=== PATIENT | female | born 1970 | race Caucasian/White ===

== ENCOUNTER 2017-02-27 09:41 | Inpatient (IN) | payer BC, OTHER ==
[~2017-02-27] VITALS: Ht 152.4 cm; Wt 49.0 kg
[2017-02-27] MEDS ORDERED: MAGNESIUM HYDROXIDE 30 ML LIQUID UDC PO PRN (18:30)
[2017-02-27] MEDS ORDERED: MAG HYDROX/AL HYDROX/SIMETH 30 ML LIQUID UDC PO PRN (18:30)
[2017-02-27] MEDS ORDERED: diphenhydrAMINE 50 MG CAPSULE PO PRN (18:30)
[2017-02-27] MEDS ORDERED: BUPRENORPHINE HCL 2 MG TAB.SUBL SL PRN (18:30)
[2017-02-27] MEDS ORDERED: ONDANSETRON 4 MG/2 ML VIAL IM PRN (18:30)
[2017-02-27] MEDS ORDERED: MIRALAX 17 GM POWD.PACK PO PRN (18:30)
[2017-02-27] MEDS ORDERED: LOPERAMIDE HCL 2 MG CAPSULE PO PRN ×2 (18:30)
[2017-02-27] MEDS ORDERED: DICYCLOMINE HCL 20 MG TABLET PO PRN (18:30)
--- NOTE | 2017-02-27 19:15 | NUR ---
ADMISSION NOTE: Patient is a 46 y.o female admitted at [facility] at approximately 1915 pm of 02/27/17 for medically supervised withdrawal from Opiates and Benzo. Body search done and skin check performed in Room 301, no contraband found. Skin noted to be intact. Pt is 50 tall and weighs 108 lbs in a standing scale. Pt is cooperative during assessment. Patient is oriented to floor unit and room. Patient follows a regular diet at home with no known food and drug allergies. Pt wishes to be full Code. Patient is alert & oriented x4, ambulatory with a steady gait. Speech is clear and audible. Pt is cooperative during interview. No shortness of breath noted. Respiration even & unlabored. Abdomen soft & non-distended. Bowel sounds active in all four quadrants. Pt complains of nausea & stomach cramps. No episode of vomiting noted. Patient complains of 8/10 body aches & mild headache. Bilateral hand tremors noted. Pt complains of runny nose, sweating & chills. Vitals upon admission: B/P 136/86, TX 89, Temp 98.2, RR 16, O2Sat 98%. Patient noted with past medical history of Anxiety, Depression, Hypertension, & history of seizure d/t benzo withdrawal. Pt denies thoughts of suicide. Pt currently denies SI/HI. Pt was able to provide urine sample for drug screen and is voiding clear yellow urine with no problems. Substance use: 1. Roxycodone- Pt uses 240-270mg PO daily for 7 months. Last use was 60mg on the day of admission 02/27/17. Pt has been using since 23 years old. 2. Xanax PO- Pt uses as prescribed. Pt uses 2mg TID (6mg/daily) for 20 years. Last use was 6mg the day prior to 02/26/17. Pt has been to [facility] in [place] 2 years ago for detox for 9 days. 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 Patient denies being hospitalized in the last 30 days. Patient reports symptoms when he does not use as body aches, tremors, hot & cold sweats, insomnia, loss of appetite, nausea/vomiting & diarrhea. Patient smokes 20 cigarettes daily. Patient refused pneumonia vaccine, educated patient risk & benefits but still refused. Patient has PCP Dr. Mahogany Landa. Urine drug screen came back positive for Opiates & Benzodiazepines. Fall & Seizure precautions are in place. All needs attended & met. Safety precautions are in place. Bed locked in lowest position. Both side rails padded & up. Call light within pt's reach. Will continue to monitor. Dr. Spencer seen pt. Awaiting for admission order. Will continue to monitor patient.
[2017-02-27 19:35] VITALS: BP 136/86
[2017-02-27 20:54] LABS: *URINE HCG, QUAL NEGATIVE (NEGATIVE)
[2017-02-27 21:15] LABS: *AMPHETAMINE, URINE NEGATIVE (NEGATIVE); *BARBITURATE, URINE NEGATIVE (NEGATIVE); *CANNABINOID, URINE NEGATIVE (NEGATIVE); *COCCAINE, URINE NEGATIVE (NEGATIVE); *OPIATE, URINE POSITIVE (NEGATIVE); *PHENCYCLIDINE SCREEN,URINE NEGATIVE (NEGATIVE)
[2017-02-27 21:31] LABS: BASOPHILS # (AUTO) 0.1 K/uL (0.0-0.2); BASOPHILS % (AUTO) 0.6 % (0.0-2.0); EOSINOPHILS # (AUTO) 0.7 K/uL (0.0-0.7); EOSINOPHILS % (AUTO) 5.6 % (0.0-7.0); HEMATOCRIT 44.4 % (37.0-47.0); HEMOGLOBIN 15.4 g/dL (12.0-16.0); LYMPHOCYTES # (AUTO) 3.8 K/uL (0.8-4.8); LYMPHOCYTES % (AUTO) 28.8 % (20.5-51.5); MEAN CORPUSCULAR HEMOGLOBIN 31.4 uug (27.0-31.0); MEAN CORPUSCULAR HGB CONC 35 g/dL (32.0-37.0); MEAN CORPUSCULAR VOLUME 90.7 fL (81.0-99.0); MONOCYTES # (AUTO) 0.6 K/uL (0.1-1.30); MONOCYTES % (AUTO) 4.5 % (0.0-11.0); NEUTROPHILS # (AUTO) 8.1 K/uL (1.8-8.9); NEUTROPHILS % (AUTO) 60.5 % (38.5-71.5); PLATELET COUNT (AUTO) 365 K/uL (150-450); WHITE BLOOD COUNT (AUTO) 13.3 K/uL (4.0-11.2)
[2017-02-27 21:50] LABS: ALANINE AMINOTRANSFERASE 40 U/L (14-59); ALKALINE PHOSPHATASE 59 U/L (50-136); ASPARTATE AMINOTRANSFERASE 25 U/L (15-37); BILIRUBIN,TOTAL 0.4 mg/dL (0.2-1.0); CARBON DIOXIDE 28 mmol/L (21-32); CHLORIDE 98 mmol/L (98-107); CREATININE 0.7 mg/dL (0.6-1.3); GFR 90 mL/min (>60); GLUCOSE 133 mg/dL (74-106); MAGNESIUM 2.1 mg/dL (1.8-2.4); SODIUM SERUM 138 mmol/L (136-145); TOTAL PROTEIN, SERUM 7.9 g/dL (6.4-8.2); UREA NITROGEN, BLOOD 13 mg/dL (7-18)
[2017-02-27 21:52] LABS: POTASSIUM 2.7 mmol/L (3.5-5.1)
[2017-02-27 21:58] LABS: ETHANOL < 3 MG/DL (0-0)
[2017-02-27] MEDS ORDERED: DIAZEPAM 10 MG TABLET PO ONE (22:00)
[2017-02-27 22:09] LABS: HIV-1 p24 ANTIGEN NON REACTIVE (NONREACTIVE); HIV-1/2 ANTIBODY NON REACTIVE (NONREACTIVE)
[2017-02-27] MEDS ORDERED: POTASSIUM CHLORIDE 20 MEQ TAB.PRT.SR PO ONE ×3 (22:15→23:00)
[2017-02-27 22:16] LABS: THYROID STIMULATING HORMONE 1.329 mIU/mL (0.358-3.740)
[2017-02-27] MEDS: IBUPROFEN 600 MG TABLET PO PRN (22:35)
[2017-02-27] MEDS: CLONIDINE HCL 0.1 MG TABLET PO PRN (22:35)
--- NOTE | 2017-02-27 22:35 | NUR ---
PRN Motrin & Zofran. Patient complains of 8/10 body aches and nausea. No episode of vomiting noted. Pt appears restless. PRN Motrin & Zofran given as ordered. Will reassess in 1 hour. Will continue to monitor patient. Addendum: 02/28/17 at 0501 by TIFFANY BETANCOURT RN PRN Clonidine also given for c/o sweating, chills & anxiety. B/P 156/91, CO 89, RR 16, O2Sat 99% noted. Will continue to monitor.
--- NOTE | 2017-02-27 22:35 | NUR ---
New orders Dr. Spencer placed an order for K-dur 40mEQ for potassium levels of 2.7 and Valium 10mg PO. Pt noted with COWS 10 CIWA 8 as evidenced by c/o body aches, anxiety, visible tremors, sweating, chills, mild headache, & nausea. Vitals signs stable. B/P 156/91, TN 89, RR 16, O2Sat 99%. Will reassess in 1 hour for effectiveness of medication.
[2017-02-27] MEDS: ONDANSETRON ODT 4 MG TAB.RAPDIS SL PRN (22:36)
[2017-02-27] MEDS ORDERED: POTASSIUM CHLORIDE 20 MEQ TAB.PRT.SR ONE (22:41)
--- NOTE | 2017-02-27 23:35 | NUR ---
PRN Reassessment Patient verbalized relief from pain & improved nausea. No episode of vomiting noted. Patient lying in bed and appears calm and comfortable. Vitals rechecked. B/P 96/65 LA 82 noted. COWS 6 CIWA 4. Will continue to monitor patient.
[2017-02-28] VITALS (7 sets, daily range): BP systolic 96–128; BP diastolic 65–83
[2017-02-28] MEDS ORDERED: POTASSIUM CHLORIDE 20 MEQ TAB.PRT.SR ONE (00:18)
--- NOTE | 2017-02-28 00:18 | NUR ---
new order Dr. Spencer placed an order for K-dur 40mEQ for potassium levels of 2.7. ok to give at this time. Kdur 40 Meq administered as ordered. Will continue to monitor.
[2017-02-28] MEDS: HYDROXYZINE PAMOATE 25 MG CAPSULE PO PRN ×3 (00:35→23:35)
--- NOTE | 2017-02-28 00:36 | NUR ---
PRN vistaril & Benadryl Pateint c/o of anxiety & insomnia. PRN Vistaril & Benadryl given as ordered. Will continue to monitor.
--- NOTE | 2017-02-28 01:36 | NUR ---
PRN Reassessment Patient asleep in bed and appears comfortable. No shortness of breath noted. Respiration even & unlabored. Safety precautions are in place. Will continue to monitor patient.
[2017-02-28] MEDS ORDERED: ESCI10TA PO (02:38)
[2017-02-28] MEDS ORDERED: AMLO10TA2 PO (02:38)
[2017-02-28] MEDS ORDERED: METO100T3 PO (02:38)
[2017-02-28] MEDS ORDERED: ALPR2TAB2 PO (02:38)
[2017-02-28] MEDS: IBUPROFEN 600 MG TABLET PO PRN (05:18)
--- NOTE | 2017-02-28 07:39 | NUR ---
END OF SHIFT NOTE: Patient is a 46 y/o female admitted last night 02/27/17 at 1915pm for Opiate and Benzo dependence. Patient reported using Roxycodone 240-270mg daily for 7 months & Xanax 6mg daily. Patient with past medical history of Anxiety, Depression, Hypertension & history of Seizure d/t benzo withdrawal. Seizure and Fall precautions. Patient is on a regular diet with no known food and drug allergies. Full Code status. Patient was placed on a 5-day Valium and 5-day Subutex taper to be started @ 0900. Initial COWS is 10 CIWA 8 noted. Pt was given PRN Motrin, Zofran & Clonidine for withdrawals and were effective. MD ordered a one time dose of Valium 10mg and was effective. Blood result came back and with a potassium level of 2.7 noted. Patient was given K-dur 40mEq twice at 2235 & 0031 as ordered. Pt reported that medication is effective in controlling withdrawals as evident by a decreased in COWS from 10 to 6 & CIWA from 8 to 4. Pt was having trouble sleeping and c/o anxiety. PRN Vistaril & Benadryl given as ordered. Pt remained stable and vitals remains WNL. Pt slept for a total of 5 hours. Pt consumed 850 ml of fluids. Voided 1x with no bowel movement. All needs attended & met. Safety precautions are in place. Will endorse pt to day shift nurse.
--- NOTE | 2017-02-28 08:00 | NUR ---
START OF SHIFT Pt 46 y/o female admitted for opioid and benzo dependence. Pt received in room awake laying on bed. Pt alert and oriented to name, place, and time. Perrla. Skin warm and slightly moist to touch. Respirations even and unlabored. Bilateral hand tremors noted. Pt with c/o runny nose, body aches 6/10, and stated she is experience sweats. Bed on lowest position with side rails x2up for safety. Call light within reach. No distress noted at this time.
[2017-02-28 08:07] LABS: BASOPHILS % (AUTO) 0.5 % (0.0-2.0); EOSINOPHILS # (AUTO) 0.4 K/uL (0.0-0.7); EOSINOPHILS % (AUTO) 4.8 % (0.0-7.0); HEMATOCRIT 44.9 % (37.0-47.0); HEMOGLOBIN 15.3 g/dL (12.0-16.0); LYMPHOCYTES # (AUTO) 2.1 K/uL (0.8-4.8); LYMPHOCYTES % (AUTO) 25.8 % (20.5-51.5); MEAN CORPUSCULAR HEMOGLOBIN 30.6 uug (27.0-31.0); MEAN CORPUSCULAR HGB CONC 34 g/dL (32.0-37.0); MEAN CORPUSCULAR VOLUME 89.8 fL (81.0-99.0); MONOCYTES # (AUTO) 0.3 K/uL (0.1-1.30); MONOCYTES % (AUTO) 3.6 % (0.0-11.0); NEUTROPHILS # (AUTO) 5.2 K/uL (1.8-8.9); NEUTROPHILS % (AUTO) 65.3 % (38.5-71.5); PLATELET COUNT (AUTO) 339 K/uL (150-450); RED CELL DISTRIBUTION WIDTH 13.3 % (11.5-14.5)
[2017-02-28 08:18] LABS: CALCIUM 9.2 mg/dL (8.5-10.1); CREATININE 0.7 mg/dL (0.6-1.3); MAGNESIUM 2.2 mg/dL (1.8-2.4); PHOSPHOROUS 2.3 mg/dL (2.5-4.9); POTASSIUM 4.2 mmol/L (3.5-5.1)
[2017-02-28] MEDS ORDERED: TUBERCULIN,PURIF.PROT.DERIV. 5 TU/0.1 ML TEST ID ONE (09:00)
[2017-02-28] MEDS: DIAZEPAM 10 MG TABLET PO SCH ×3 (09:17→21:34)
[2017-02-28] MEDS: AMLODIPINE 10 MG TABLET PO SCH (09:17)
[2017-02-28] MEDS: MULTIVITAMINS,THERAPEUTIC TABLET PO SCH (09:17)
[2017-02-28] MEDS: METHOCARBAMOL 750 MG TABLET PO PRN (09:17)
--- NOTE | 2017-02-28 09:17 | NUR ---
PRN Pt with c/o body aches 05/04. robaxin po prn per MD order given and tolerated well.
[2017-02-28] MEDS: BUPRENORPHINE HCL 2 MG TAB.SUBL SL SCH ×4 (09:18→21:34)
[2017-02-28] MEDS ORDERED: NEUTRA PHOS PACKET PO ONE (10:00)
--- NOTE | 2017-02-28 10:17 | NUR ---
PRN EVAL Pt observed in bed with eyes closed resting, but easily arousable to name. No distress noted this time.
[2017-02-28] MEDS ORDERED: diphenhydrAMINE 25 MG CAP PO PRN (15:45)
--- NOTE | 2017-02-28 18:31 | NUR ---
END OF SHIFT Pt 46 y/o female admitted for opioid and benzo dependence. Pt alert and oriented to name, place, and time. Perrla. Skin warm and slightly moist to touch. Respirations even and unlabored. Bilateral hand tremors noted. Pt with episodes of chills and sweats throughout the day. Pt with tearful episode this afternoon after speaking with family. Pt medication compliant and tolerated well. No ASE noted. Pt selective wtih group activity today. Bed on lowest position with side rails x2up for safety. Call light within reach. No distress noted at this time.
--- NOTE | 2017-02-28 19:00 | NUR ---
START OF SHIFT NOTE: Patient is a 46 y/o female admitted last night 02/27/17 at 1915pm for Opiate and Benzo dependence. Patient reported using Roxycodone 240-270mg daily for 7 months & Xanax 6mg daily. Patient with past medical history of Anxiety, Depression, Hypertension & history of Seizure d/t benzo withdrawal. Seizure and Fall precautions. Patient is on a regular diet with no known food and drug allergies. Full Code status. Patient was started on a 5-day Subutex and 5-day Valium taper and tolerating well. Last COWS is 10. Pt was given Vistaril & Robaxin and was effective. Patient is alert & oriented x4. No shortness of breath noted. Respiration even & unlabored. Abdomen soft & non-distended. Bowel sounds active in all four quadrants. No nausea/vomiting noted. No complaints of pain/discomfort. Patient denies any anxiety. Bilateral hand tremors noted. No hallucinations. Patient denies SI/HI. Safety precautions are in place. Bed locked in lowest position. Both side rails up. Call light within pts reach. Will continue to monitor.
[2017-02-28] MEDS: TRAZODONE 50 MG TABLET PO PRN (21:35)
--- NOTE | 2017-02-28 21:35 | NUR ---
PRN Trazodone Patient c/o insomnia. Patient lying in bed and appears calm. No c/o pain noted. PRN Trazodone given as ordered. Will reassess in 1 hour for effectiveness of medication.
[2017-02-28] MEDS ORDERED: TRAZODONE 50 MG TABLET ONE (21:37)
[2017-02-28] MEDS ORDERED: albuterol NEB (21:46)
--- NOTE | 2017-02-28 21:51 | NUR ---
RN note: New information regarding pt noted. Patient stated that she has COPD and has been receiving Albuterol nebulizer PRN at home for shortness of breath. Dr. Spencer notified that pt c/o SOB. Dr. Spencer with new order for ALbuterol Q4H PRN via nebulizer. Addendum: 03/01/17 at 0120 by TIFFANY BETANCOURT RN RT notified to administer treatment. Will continue to monitor patient.
[2017-02-28] MEDS: ALBUTEROL SULFATE 1.25 MG/3 ML NEBU NEB PRN (22:28)
[2017-02-28] MEDS ORDERED: ALBUTEROL SULFATE 1.25 MG/3 ML NEBU ONE (22:28)
--- NOTE | 2017-02-28 22:28 | NUR ---
Called by e learning specialist to administer PRN resp neb tx at this time. Tx adm'd and tolerated well.
--- NOTE | 2017-02-28 22:35 | NUR ---
PRN Reassessment Patient still awake at this time. PRN medication not effective at this time. Non-pharmacological intervention and relaxation techniques provided. Will continue to monitor patient.
--- NOTE | 2017-02-28 23:00 | NUR ---
PRN Reassessment Patient verbalized that Albuterol treatment helped. PRN medication effective. Pt denies any shortness of breath at this time. Patient lying in bed and appears comfortable. Will continue to monitor patient.
--- NOTE | 2017-02-28 23:35 | NUR ---
PRN Vistaril Patient c/o anxiety. Pt lying in bed and appear anxious and restless. PRN Vistaril given as ordered. Will conitnue to monitor for effectiveness of medication.
[2017-03-01] VITALS: BP 98/63
[2017-03-01] MEDS: IBUPROFEN 600 MG TABLET PO PRN ×2 (01:53→13:32)
--- NOTE | 2017-03-01 01:53 | NUR ---
PRN Motrin Patient woke up with 6/10 headache. Pt noted with facial grimacing. PRN Motrin given as ordered. Will continue to monitor.
--- NOTE | 2017-03-01 02:53 | NUR ---
PRN Reassessment Patient asleep at this time and unable to reassess for effectiveness of medication given. Patient lying in bed and appears comfortable in bed. No shortness of breath noted. Will continue to monitor.
[2017-03-01 04:00] VITALS: BP 93/60
--- NOTE | 2017-03-01 07:17 | NUR ---
END OF SHIFT NOTE: Patient is a 46 y/o female admitted 02/27/17 for Opiate and Benzo dependence. Patient reported using Roxycodone 240-270mg daily for 7 months & Xanax 6mg daily. Patient with past medical history of Anxiety, Depression, Hypertension & history of Seizure d/t benzo withdrawal. Seizure and Fall precautions. Patient is on a regular diet with no known food and drug allergies. Full Code status. Patient is on on a 5-day Valium and 5-day Subutex taper and tolerating well. Last COWS is 5 CIWA 5 noted. Pt was given PRN Motrin, Vistaril & Trazodone during my shift. Pt c/o of shortness of breath and disclosed that she has COPD and that she takes Albuterol PRN via nebulizer for SOB at home. Dr. Spencer notified and with new orders noted. Pt received 1 breathing treatment last night and was effective. Pt remained stable and vitals remains WNL. Pt slept for a total of 5 hours. Pt consumed 800 ml of fluids. Voided 3x with no bowel movement. All needs attended & met. Safety precautions are in place. Will endorse to day shift nurse.
[2017-03-01 08:00] VITALS: BP 126/85
--- NOTE | 2017-03-01 08:00 | NUR ---
START OF SHIFT Pt 46 y/o female admitted for opioid and benzo dependence. Pt received in room awake laying on bed. Pt alert and oriented to name, place, and time. Perrla. Skin warm and slightly moist to touch. Respirations even and unlabored. Bilateral hand tremors noted. Pt with c/o stuffy nose, body aches 5/10, and stated she is experience sweats and chills throughout the night. It was reported that pt slept for 5 hours of sleep last night. Bed on lowest position with side rails x2up for safety. Call light within reach. No distress noted at this time.
[2017-03-01] MEDS: ALBUTEROL SULFATE 1.25 MG/3 ML NEBU NEB PRN ×2 (08:10→20:30)
--- NOTE | 2017-03-01 08:10 | NUR ---
PRN Pt with c/o SOB. Albuterol treatment prn per MD order administered by RT and tolerated well.
[2017-03-01] MEDS: BUPRENORPHINE HCL 2 MG TAB.SUBL SL SCH ×3 (08:30→21:26)
[2017-03-01] MEDS: MULTIVITAMINS,THERAPEUTIC TABLET PO SCH (08:30)
[2017-03-01] MEDS: DIAZEPAM 5 MG TABLET PO SCH ×4 (08:30→21:25)
[2017-03-01] MEDS: AMLODIPINE 10 MG TABLET PO SCH (08:32)
[2017-03-01] MEDS: METHOCARBAMOL 750 MG TABLET PO PRN (08:32)
[2017-03-01] MEDS: LORATADINE 10 MG TABLET PO SCH (08:32)
--- NOTE | 2017-03-01 08:32 | NUR ---
PRN Pt with c/o generalized body aches 03/04. robaxin po prn per MD order given and tolerated well.
[2017-03-01] MEDS: FLUTICASONE PROP NASAL SPRAY 16 GM BOTTLE NS SCH (08:33)
[2017-03-01 08:36] LABS: CALCIUM 8.6 mg/dL (8.5-10.1); CREATININE 0.6 mg/dL (0.6-1.3); MAGNESIUM 2.3 mg/dL (1.8-2.4); POTASSIUM 4.7 mmol/L (3.5-5.1)
--- NOTE | 2017-03-01 09:32 | NUR ---
PRN EVAL Pt observed in bed watching television and states pain level 1/10.
[2017-03-01 12:00] VITALS: BP 10/76
[2017-03-01 12:08] LABS: HCV AB 0.1 s/co ratio (0.0-0.9); HEPATITIS B CORE AB, IgM Negative (Negative); HEPATITIS B SURFACE AG Negative (Negative)
[2017-03-01] MEDS ORDERED: METHYL SALICYLATE/MENTHOL CREAM 28 GM TUBE TOP PRN (12:45)
--- NOTE | 2017-03-01 13:32 | NUR ---
PRN Pt with c/o headache 04/03. Motrin po prn per MD order given and tolerated well.
--- NOTE | 2017-03-01 14:31 | NUR ---
PRN EVAL Pt observed on bed in room watching television. No distress noted. Pt stated headache 12/04.
[2017-03-01] MEDS: GABAPENTIN 300 MG CAPSULE PO SCH ×2 (15:11→21:26)
[2017-03-01 16:00] VITALS: BP 102/68
--- NOTE | 2017-03-01 17:02 | NUR ---
PRN Pt with c/o bilateral leg cramping. Tim topical prn per MD order given.
--- NOTE | 2017-03-01 18:02 | NUR ---
ALEXANDRIA FELDER Pt observed in room laying on bed awake. Pt states she feels the medication for BLE is effective. No distress noted at this time.
--- NOTE | 2017-03-01 18:36 | NUR ---
END OF SHIFT Pt 46 y/o female admitted for opioid and benzo dependence. Pt alert and oriented to name, place, and time. Perrla. Skin warm and slightly moist to touch. Respirations even and unlabored. Bilateral hand tremors noted. Pt stated had episodes of chills throughout the day. Pt medication compliant and tolerated well. No ASE noted. Pt attended group activity today. Bed on lowest position with side rails x2 up for safety. Call light within reach. No distress noted at this time.
--- NOTE | 2017-03-01 19:30 | NUR ---
START OF SHIFT NOTE: Patient is a 46 y/o female admitted 02/27/17 for Opiate and Benzo dependence. Patient reported using Roxycodone 240-270mg daily for 7 months & Xanax 6mg daily. Patient with past medical history of Anxiety, Depression, Hypertension, COPD & history of Seizure d/t benzo withdrawal. Seizure and Fall precautions. Patient is on a regular diet with no known food and drug allergies. Full Code status. Patient was started on a 5-day Subutex and 5-day Valium taper and tolerating well. Last COWS is 6 CIWA 3. Pt was given PRN Bengay for leg pain and was effective. Patient is alert & oriented x4. No shortness of breath noted. Respiration even & unlabored. Abdomen soft & non-distended. Bowel sounds active in all four quadrants. Pt complains of nausea/vomiting noted. Pt c/o of 6/10 body aches, anxiety & mild headache. Bilateral hand tremors noted. No hallucinations. Patient denies SI/HI. Safety precautions are in place. Bed locked in lowest position. Both side rails up. Call light within pts reach. Will continue to monitor.
[2017-03-01 20:00] VITALS: BP 106/70
--- NOTE | 2017-03-01 20:30 | NUR ---
Breathing treatment given. Treatment tolerated well. No adverse reactions noted.
[2017-03-01] MEDS: PRAZOSIN HCL 1 MG CAPSULE PO SCH (21:24)
[2017-03-01] MEDS: ONDANSETRON ODT 4 MG TAB.RAPDIS SL PRN (21:25)
[2017-03-01] MEDS: TRAZODONE 50 MG TABLET PO PRN (21:25)
--- NOTE | 2017-03-01 21:25 | NUR ---
PRN Trazodone Patient complains of insomnia. PRN Trazodone given as ordered. Will continue to monitor.
--- NOTE | 2017-03-01 22:25 | NUR ---
PRN reassessment Pt still awake. PRN medication not effective at this time. Will continue to monitor patient.
[2017-03-01] MEDS: HYDROXYZINE PAMOATE 25 MG CAPSULE PO PRN (22:54)
--- NOTE | 2017-03-01 22:54 | NUR ---
PRN Vistaril Patient complained of anxiety. Patient is restless and appears anxious. PRN Vistaril given as ordered. Will continue to monitor.
[2017-03-01] MEDS ORDERED: HYDROXYZINE PAMOATE 25 MG CAPSULE ONE (23:02)
--- NOTE | 2017-03-01 23:54 | NUR ---
PRN Reassessment Patient asleep and appears comfortable. No shortness of breath noted. Respiration even & unlabored. Will continue to monitor patient.
[2017-03-02] VITALS: BP 96/58
[2017-03-02] MEDS: ACETAMINOPHEN 325 MG TABLET PO PRN ×2 (02:34→13:25)
[2017-03-02] MEDS: ALBUTEROL SULFATE 1.25 MG/3 ML NEBU NEB PRN (02:41)
--- NOTE | 2017-03-02 07:45 | NUR ---
END OF SHIFT NOTE: Patient is a 46 y/o female admitted 02/27/17 for Opiate and Benzo dependence. Patient reported using Roxycodone 240-270mg daily for 7 months & Xanax 6mg daily. Patient with past medical history of Anxiety, Depression, Hypertension, COPD & history of Seizure d/t benzo withdrawal. Seizure and Fall precautions. Patient is on a regular diet with no known food and drug allergies. Full Code status. Patient was started on a 5-day Subutex and 5-day Valium taper and tolerating well. Last COWS is 6 CIWA 5. Pt was given PRN Trazodone for sleep, Tylenol for headache, Vistaril for Anxiety, Zofran for nausea & was given PRN Albuterol for SoB by RT and was effective. Pt remained stable and vitals remains WNL. Pt slept for a total of 5 hours. Pt consumed 795ml of fluids. Voided 2x with no bowel movement. All needs attended & met. Safety precautioons are in palce Will continue to monitor.
[2017-03-02 08:00] VITALS: BP 121/80
--- NOTE | 2017-03-02 08:00 | NUR ---
START OF SHIFT Pt 46 y/o female admitted for opioid and benzo dependence. Pt received in room awake laying on bed watching television. Pt alert and oriented to name, place, and time. Perrla. Skin warm and slightly moist to touch. Respirations even and unlabored. Bilateral hand tremors noted slightly. Pt with c/o stuffy nose and stated she experiences sweats and chills throughout the night. It was reported that pt slept for 5 hours of sleep last night. Bed on lowest position with side rails x2up for safety. Call light within reach. No distress noted at this time.
[2017-03-02] MEDS: DIAZEPAM 5 MG TABLET PO SCH ×3 (08:42→21:15)
[2017-03-02] MEDS: MULTIVITAMINS,THERAPEUTIC TABLET PO SCH (08:42)
[2017-03-02] MEDS: GABAPENTIN 300 MG CAPSULE PO SCH ×2 (08:42→15:11)
[2017-03-02] MEDS: AMLODIPINE 10 MG TABLET PO SCH (08:42)
[2017-03-02] MEDS: LORATADINE 10 MG TABLET PO SCH (08:42)
[2017-03-02] MEDS: FLUTICASONE PROP NASAL SPRAY 16 GM BOTTLE NS SCH (08:43)
[2017-03-02 08:46] LABS: FOLIC ACID 13.6 NG/ML (8.6-58.9)
[2017-03-02] MEDS ORDERED: BUPRENORPHINE HCL 2 MG TAB.SUBL SL SCH (09:00)
[2017-03-02 12:00] VITALS: BP 121/80
--- NOTE | 2017-03-02 12:22 | NUR ---
PRN Pt with c/o headache 04/03. Motrin po prn per MD order given and tolerated well.
[2017-03-02] MEDS: IBUPROFEN 600 MG TABLET PO PRN ×2 (12:27→21:14)
--- NOTE | 2017-03-02 13:22 | NUR ---
PRN BRADFORD Pt stated the motrin po prn per MD order was not effective and still has a headache.
--- NOTE | 2017-03-02 13:25 | NUR ---
PRN Pt with c/o headache 05/04. Tylenol po prn per MD order given and tolerated well.
[2017-03-02] MEDS ORDERED: GUAIFENESIN/DEXTROMETHORPHAN 5 ML UDC PO PRN (14:15)
--- NOTE | 2017-03-02 14:20 | NUR ---
ALEXANDRIA FELDER Pt observed walking around in the hallway. Pt stated medication was effective for her headache.
[2017-03-02] MEDS: BUPRENORPHINE HCL 2 MG TAB.SUBL SL SCH ×2 (15:12→21:17)
[2017-03-02 16:00] VITALS: BP 95/66
[2017-03-02] MEDS: IPRATROPIUM BROMIDE 0.5 MG/2.5 ML NEBU NEB PRN (17:39)
[2017-03-02] MEDS: ALBUTEROL SULFATE 2.5 MG/3 ML NEBU NEB PRN (17:39)
[2017-03-02] MEDS: HYDROXYZINE PAMOATE 25 MG CAPSULE PO PRN (18:35)
--- NOTE | 2017-03-02 18:37 | NUR ---
PRN Pt observed in room restless, talking with pressured speech, and some perspiration noted on forehead. Pt stated she is anxious. Vistaril po prn per MD order given and tolerated well.
--- NOTE | 2017-03-02 19:00 | NUR ---
END OF SHIFT Pt 46 y/o female admitted for opioid and benzo dependence. Pt alert and oriented to name, place, and time. Perrla. Skin warm and slightly moist to touch. Respirations even and unlabored. Bilateral hand tremors noted. Pt with an episode of anxiety, pressured speech and appeared distrought this afternoon. Pt medication compliant and tolerated well. No ASE noted. Pt attended group activity today. Bed on lowest position with side rails x2 up for safety. Call light within reach. No distress noted at this time.
--- NOTE | 2017-03-02 19:56 | NUR ---
START OF SHIFT NOTE Pt is a 46 y/o female admitted for Roxicodone and Xanax dependence and use. Pt has NKA but reported a PMH of anxiety, depression, HTN, and seizure r/t benzo w/d. Per day shift nurse pt was placed on a 5 day Subutex and 5 day Valium taper (day 3) and is tolerating medication well with no s/e or a/r reported. Pt received Motrin PO PRN , Tylenol PO PRN , and Vistaril PO PRN during the day shift. Last COW:6 and CIWA: 4(1600). At this time pt is calm, cooperative and compliant with plan of care. Pt denies any pain/discomfort. Pt is encouraged to notify staff of any changes in condition or of any concerns. Pt verbalized an understanding.All safety measures in place; side rails up x 2 bed locked and in low position and call light is within reach. Will continue to monitor.
[2017-03-02 20:00] VITALS: BP 128/85
[2017-03-02] MEDS ORDERED: GABAPENTIN 300 MG CAPSULE PO SCH (21:00)
[2017-03-02] MEDS: TRAZODONE 50 MG TABLET PO PRN (21:14)
--- NOTE | 2017-03-02 21:14 | NUR ---
MOTRIN AND TRAZODONE PRN ADMINISTRATION Pt stated "Can I have something for my back ache? Its about a 4/10 right now, and also can I have something to help me sleep?" Motrin 600 mg PO PRN and Trazodone 100 mg PO PRN was given. Pt was encouraged to notify staff of any changes in condition or of any additional concerns. Pt verbalized an understanding. All safety measures in place. Will monitor for effectiveness.
[2017-03-02] MEDS: PRAZOSIN HCL 1 MG CAPSULE PO SCH (21:16)
--- NOTE | 2017-03-02 22:15 | NUR ---
MOTRIN AND TRAZODONE PRN REASSESSMENT Pt is asleep in bed with no signs of discomfort/distress noted. Breathing is even and unlabored. Respirations are 14 breaths per minute. PRN effective. Will continue to monitor.
[2017-03-03] VITALS: BP 106/69
[2017-03-03] MEDS: HYDROXYZINE PAMOATE 25 MG CAPSULE PO PRN ×3 (00:03→21:11)
--- NOTE | 2017-03-03 00:05 | NUR ---
VISTARIL PRN ADMINISTRATION Pt stated " I woke up for a cigarette, now I can't go back to sleep. I feel anxious. Can I take some Vistaril?" Vistaril 50 mg PO PRN was given. Pt was encouraged to notify staff of any changes in condition or of any concerns. Pt verbalized an understanding. All safety measures in place. Will monitor for effectiveness.
--- NOTE | 2017-03-03 01:05 | NUR ---
VISTARIL PRN REASSESSMENT Pt is asleep in bed with no signs of discomfort/distress/anxiety noted. Respirations are 14 breaths per minute. PRN effective. Will continue to monitor.
--- NOTE | 2017-03-03 04:00 | NUR ---
COW, CIWA, AND VITALS REFUSED Pt refused to be assessed and have vitals taken at this time. Pt was encouraged x 3 with risks and benefits explained, but the pt still declined. All safety measures in place. Will continue to monitor. Addendum: 03/03/17 at 0543 by EDMUND VASQUEZ LVN Amended: Links added.
[2017-03-03] MEDS: ALBUTEROL SULFATE 2.5 MG/3 ML NEBU NEB PRN ×2 (06:36→19:40)
[2017-03-03] MEDS: IPRATROPIUM BROMIDE 0.5 MG/2.5 ML NEBU NEB PRN ×2 (06:36→19:40)
--- NOTE | 2017-03-03 07:25 | NUR ---
START OF SHIFT NOTE: Received report from operation shift supervisor nurse. Pt is a 46 y/o female admitted 02-27-27 for Roxicodone and Xanax dependence and use. Pt is on a 5 day Subutex and Valium tapers. Tolerating well. Pt c/o anxiety. Pt noted to have gross upper extremity tremors. Pt is alert and oriented X4. Color good, skin warm and dry. Respirations even and unlabored. Safety precautions observed. Call light within reach. Will continue to monitor.
[2017-03-03] MEDS: CLONIDINE HCL 0.1 MG TABLET PO PRN (07:31)
--- NOTE | 2017-03-03 07:40 | NUR ---
Pt with severe anxiety. Gross upper extremity tremors noted. HR 130. Vistaril 50mg po prn and Clonidine 0.1mg po prn administered.
--- NOTE | 2017-03-03 07:47 | NUR ---
END OF SHIFT NOTE Pt is a 46 y/o female admitted for Roxicodone and Xanax dependence and use. Pt has NKA but reported a PMH of anxiety, depression, HTN, and seizure r/t benzo w/d. Pt was placed on a 5 day Subutex and 5 day Valium taper (day 4) and is tolerating medication well with no s/e or a/r reported. Pt received Motrin PO PRN, Vistaril PO PRN, Trazodone 100 mg PO PRN and a breathing tx x 1 during the shift. Last COW:3 and CIWA: 2 (1999). Pt slept for a total of 5 hours. All safety measures in place; side rails up x 2 bed locked and in low position and call light is within reach. Endorsed to the oncoming nurse. Addendum: 03/03/17 at 0750 by EDMUND VASQUEZ LVN Last COW and CIWA score for (0000)
[2017-03-03 08:00] VITALS: BP 127/80
[2017-03-03] MEDS: MULTIVITAMINS,THERAPEUTIC TABLET PO SCH (08:18)
[2017-03-03] MEDS: DIAZEPAM 5 MG TABLET PO SCH ×2 (08:18→20:14)
[2017-03-03] MEDS: BUPRENORPHINE HCL 2 MG TAB.SUBL SL SCH ×3 (08:18→20:15)
[2017-03-03] MEDS: LORATADINE 10 MG TABLET PO SCH (08:18)
[2017-03-03] MEDS: GABAPENTIN 300 MG CAPSULE PO SCH ×3 (08:18→20:13)
[2017-03-03] MEDS: FLUTICASONE PROP NASAL SPRAY 16 GM BOTTLE NS SCH (08:18)
[2017-03-03] MEDS: AMLODIPINE 10 MG TABLET PO SCH (08:18)
--- NOTE | 2017-03-03 08:25 | NUR ---
Pt feels improved after Clonidine and Vistaril prn. Much less anxious. AM meds administered. COWS 7 CIWA 11. VSS
[2017-03-03] MEDS: NICOTINE 14 MG/24HR PATCH TD SCH (13:00)
[2017-03-03] MEDS ORDERED: AZITHROMYCIN 250 MG TABLET PO ONE (13:00)
[2017-03-03] MEDS ORDERED: NICOTINE POLACRILEX 4 MG GUM-PK OF TEN BC PRN (13:00)
[2017-03-03 13:02] VITALS: BP 130/72
--- NOTE | 2017-03-03 13:45 | NUR ---
Pt started on Z-Pack for URI. Awaiting sputum sample.
--- NOTE | 2017-03-03 15:30 | NUR ---
Respiratory here for breathing treatment.
--- NOTE | 2017-03-03 15:58 | NUR ---
Report given to CATHERINE Campo who will assume care of patient.
[2017-03-03 16:00] VITALS: BP 121/74
--- NOTE | 2017-03-03 19:29 | NUR ---
End of shift note Pt was admitted for opiate and benzo dependence. Pt is full code, on a regular diet, has NKA. Pt is on a valium and subutex taper. Pt had two PRN breathing treatments during the shift. Pt has no complaints at this time. Respiratory therapy has been notified to come and give the pt a breathing treatment. All other needs addressed. SBAR report endorsed to oncoming shift.
--- NOTE | 2017-03-03 19:30 | NUR ---
Start of Shift Note: Report received from day shift nurse. Pt is a 46F, admitted for Opiate/Benzodiazepine Dependence on 02/27/17. Pt attended H&I panel upon start of shift. Pt is AOx4 without s/s of acute distress. Pt is full code, on regular diet, and on fall/seizure precautions. Pt reports hx of Anxiety, Depression, Hypertension, COPD, and Benzo withdrawal-related seizures. Pt is currently on 5-day Valium taper and 5-day Subutex taper to manage withdrawal symptoms. Pt's last COWS was 7 and last CIWA was 11 during the previous shift. Bed in lowest position. Side rails up x2. Call light functioning and within reach. All needs attended and met. Will continue to monitor.
[2017-03-03 20:00] VITALS: BP 123/84
[2017-03-03] MEDS: PRAZOSIN HCL 1 MG CAPSULE PO SCH (20:13)
[2017-03-03] MEDS: TRAZODONE 50 MG TABLET PO PRN (21:11)
--- NOTE | 2017-03-03 21:11 | NUR ---
Vistaril and Trazodone PRN: Pt reported feeling anxiety about being unable to sleep. Pt requested to take Vistaril along with her PRN Trazodone. Vistaril PRN and Trazodone PRN given as ordered. Will continue to monitor.
[2017-03-04] VITALS (7 sets, daily range): BP systolic 110–131; BP diastolic 74–102
[2017-03-04] MEDS: CLONIDINE HCL 0.1 MG TABLET PO PRN (02:47)
--- NOTE | 2017-03-04 02:47 | NUR ---
RT Communication and Clonidine PRN: Pt stated she woke up and started feeling anxious. Vital Signs taken and noted to be elevated. BP: 130/106, HR: 109, SpO2 99%, RR: 20. Pt requested breathing tx for shortness of breath. RT notified. PRN clonidine given as ordered for elevated BP and anxiety. Will continue to monitor.
[2017-03-04] MEDS: IPRATROPIUM BROMIDE 0.5 MG/2.5 ML NEBU NEB PRN ×2 (03:08→17:01)
--- NOTE | 2017-03-04 07:24 | NUR ---
End of Shift Note: Pt is 46F, admitted for Opiate/Benzodiazepine Dependence on 02/27/17. Pt is AOx4 without s/s of acute distress noted. Pt is full code, on regular diet, and on fall/seizure precautions. Pt noted with NKA. Pt reports hx of Anxiety, Depression, Hypertension, COPD, and Benzo withdrawal-related seizures.Pt is currently on 5-day Valium taper and 5-day Subutex taper to manage withdrawal symptoms. Pt is compliant with plan of care. Pt slept for 7 hours. Respirations even and unlabored. Last COWS score was 2 and last CIWA score was 2 at 0400. Pt reported anxiety and inability to sleep. Vistaril and Trazodone given and were effective. Pt had breathing treatment for SOB. No N/V noted during the shift. Fall and Sz precautions observed. Bed in lowest position. Side rails up x2. Call light functioning and within reach. All needs attended and met. Will endorse to day shift nurse.
--- NOTE | 2017-03-04 07:25 | NUR ---
Start of shift Report received from date night sitter nurse. Pt is a 46 year old Female, admitted on 02/27/17 for Opiate/Benzodiazepine Dependence under the care of Dr. Spencer.Pt is full code regular diet on fall and seizure precautions denies any food or drug allergies. Pt is on a 5 day Valium and 5 day Subutex taper tolerating well, today is the last day of her taper. Reports PMH of Anxiety, Depression, Hypertension, COPD, and Benzo withdrawal-related seizures.Treatment plan tolerated well by the patient as evidenced by pt's last CIWA score of 2 and COWS score of 2 which was taken at 0400. Pt received PRN Vistaril, Trazodone and Atrovent, medications were effective per date night sitter nurse. Pt has PRN breathing treatments with RT. Pt is currently in her room laying in bed watching TV. All safety measures in place per hospital policy. Bed in lowest position, side rails up x2, call-light within reach. Will continue to monitor and provide support.
[2017-03-04] MEDS: MULTIVITAMINS,THERAPEUTIC TABLET PO SCH (10:11)
[2017-03-04] MEDS: GABAPENTIN 300 MG CAPSULE PO SCH ×2 (10:11→14:13)
[2017-03-04] MEDS: FLUTICASONE PROP NASAL SPRAY 16 GM BOTTLE NS SCH (10:11)
[2017-03-04] MEDS: LORATADINE 10 MG TABLET PO SCH (10:11)
[2017-03-04] MEDS: DIAZEPAM 2 MG TABLET PO SCH ×2 (10:12→21:51)
[2017-03-04] MEDS: AMLODIPINE 10 MG TABLET PO SCH (10:12)
[2017-03-04] MEDS: AZITHROMYCIN 250 MG TABLET PO SCH (10:12)
[2017-03-04] MEDS: NICOTINE 14 MG/24HR PATCH TD SCH (10:13)
[2017-03-04] MEDS: BUPRENORPHINE HCL 2 MG TAB.SUBL SL SCH ×2 (10:13→21:52)
[2017-03-04] MEDS: CLONIDINE HCL 0.1 MG TABLET PO SCH (14:13)
[2017-03-04] MEDS: ALBUTEROL SULFATE 2.5 MG/3 ML NEBU NEB PRN (17:01)
--- NOTE | 2017-03-04 17:01 | NUR ---
RT Communication Pt requested breathing tx for shortness of breath. RT provided breathing treatment using PRN Ventolin and Atrovent
--- NOTE | 2017-03-04 19:20 | NUR ---
End of shift Pt is a 46 year old Female, admitted on 02/27/17 for Opiate/Benzodiazepine Dependence under the care of Dr. Spencer. Pt is on a 5 day Valium and 5 day Subutex taper tolerating well, today is the last day of her taper. Reports PMH of Anxiety, Depression, Hypertension, COPD, and Benzo withdrawal-related seizures.Treatment plan tolerated well by the patient as evidenced by pt's last CIWA score of 4 and COWS score of 4 which was taken at 1600. Pt received PRN Atrovent and Ventolin with the help of RT, medications were effective. Pt ate all of her meals, pt participated in all groups and activities, all vital signs WNL, pt A&Ox4, pts total fluid intake was 1290ml pt had 4 voids and no stool. all safety measures in place endorsement given to pin attacher nurse.
--- NOTE | 2017-03-04 20:00 | NUR ---
1999 Patient received awake, alert and just returning back to [facility] room # [id number] [facility] in recreation room. Gait is steady, brisk. Patient responds to nurse's greeting and introduction with a smile and " Hi. you're my nurse now?" Patient is oriented to person, place, day, date and her personal situation. Reoriented easily to time. Patient's color is slightly pale pink and her skin is clean, warm, dry and intact. Patient's lung sounds are clear bilaterally per auscultation and she states, " Oh, I know. The breathing treatment really does help clear my lungs!" Active bowel sounds are noted X 4 abdominal Quads per auscultation. Patient states that she is eating and taking fluids ad rand with no real gastric issues for the most part, and she has been going to [employer] as consistently as she can. Vital signs are: 98-90-18 122/77, O2 Sat 97%, COWS 4, CIWA 4. Patient denies any pain or other discomforts at this time and she voices no requests or c/o anything. Fall/Seizure precautions continue. Patient was admitted on 02/27/17 for: Roxycodone and Xanax withdrawal and she is currently on a 5-Day Valium medication taper and a 5-Day Subutex medication taper, which she has apparently been tolerating well. Bed is locked and in lowest position, bed rails are up X 2 and call light within patient's easy reach.
[2017-03-04] MEDS ORDERED: GABAPENTIN 300 MG CAPSULE PO SCH (21:00)
[2017-03-04] MEDS: PRAZOSIN HCL 1 MG CAPSULE PO SCH (21:51)
[2017-03-04] MEDS: TRAZODONE 50 MG TABLET PO PRN (21:52)
--- NOTE | 2017-03-04 21:52 | NUR ---
PRN MEDICATION: Prn Trazadone 100 mg p.o. given per patient's c/o " insomnia".
--- NOTE | 2017-03-04 22:52 | NUR ---
REASSESSMENT PRN MEDICATION: Patient is downstairs on hospital patio with staff and other patients, to have a smoke.
[2017-03-05] VITALS: BP 111/65
[2017-03-05] MEDS: HYDROXYZINE PAMOATE 25 MG CAPSULE PO PRN (00:17)
[2017-03-05] MEDS: CLONIDINE HCL 0.1 MG TABLET PO PRN ×2 (00:17→21:17)
--- NOTE | 2017-03-05 00:17 | NUR ---
PRN MEDICATIONS: Prn Vistaril 50 mg p.o. given per patient's c/o anxiety and Prn Catapres 0.1 mg p.o. given per patient's c/o restless legs, increasing agitation, generalized body discomfort., COWS 4, CIWA 4
--- NOTE | 2017-03-05 01:17 | NUR ---
REASSESSMENT PRN MEDICATION: Patient is lying quietly with eyes closed and respirations even, unlabored at 14.
--- NOTE | 2017-03-05 04:00 | NUR ---
0400 Patient refused V/S to be done at this time. Patient wants to continue sleeping comfortably.
[2017-03-05] MEDS: IPRATROPIUM BROMIDE 0.5 MG/2.5 ML NEBU NEB PRN (06:17)
[2017-03-05] MEDS: ALBUTEROL SULFATE 2.5 MG/3 ML NEBU NEB PRN (06:17)
--- NOTE | 2017-03-05 06:30 | NUR ---
0630 Patient slept a total of 5 hours and 45 minutes. Total intake was 1,450 ml p.o. and she had 3 voids and no stools at bathroom. Prn medications given noted separately per floor protocol. V/SS afebrile, COWS 4, CIWA 4. Patient friendly, cooperative and verbally appropriate when awake. Patient had 1 breathing treatment by Respiratory therapist, after she came back to her room from smoking downstairs on patio. Patient is presently sleeping soundly with eyes closed and respirations even, unlabored at 14. Patient is in stable condition at this time.
[2017-03-05 08:00] VITALS: BP 102/71
--- NOTE | 2017-03-05 08:10 | NUR ---
START OF SHIFT: RECEIVED PT A/O X 4. SHE REPORTS SLEEPING WELL . SHE PRESENTS WITH ANXIOUS MOOD AND GUARDED AFFECT. SHE REPORTS ANXIETY AND RESTLESSNESS. HER HANDS ARE TREMULOUS. SUBUTEX TAPER IN PROGRESS. VALIUM TAPER IS COMPLETED.COWS 5 CIWA 5. SHE C/O BURNING AND URGENCY ON URINATION. WILL NOTIFY MD. ENCOURAGED INCREASED FLUIDS.ENCOURAGED GROUP ATTENDANCE. WILL CONTINUE TO MONITOR AND PROVIDE SAFE AND SUPPORTIVE ENVIRONMENT.
[2017-03-05 08:13] LABS: VIT D, 25-HYDROXY 13.3 ng/mL (30.0-100.0)
[2017-03-05] MEDS: CLONIDINE HCL 0.1 MG TABLET PO SCH (08:35)
[2017-03-05] MEDS: FLUTICASONE PROP NASAL SPRAY 16 GM BOTTLE NS SCH (08:35)
[2017-03-05] MEDS: LORATADINE 10 MG TABLET PO SCH (08:35)
[2017-03-05] MEDS: GABAPENTIN 300 MG CAPSULE PO SCH ×3 (08:36→21:17)
[2017-03-05] MEDS: MULTIVITAMINS,THERAPEUTIC TABLET PO SCH (08:36)
[2017-03-05] MEDS: AMLODIPINE 10 MG TABLET PO SCH (08:36)
[2017-03-05] MEDS: AZITHROMYCIN 250 MG TABLET PO SCH (08:36)
[2017-03-05] MEDS: NICOTINE 14 MG/24HR PATCH TD SCH (08:37)
[2017-03-05] MEDS ORDERED: BUPRENORPHINE HCL 2 MG TAB.SUBL SL SCH (09:00)
[2017-03-05 10:52] LABS: *BILIRUBIN,URIN NEGATIVE (NEGATIVE); *BLOOD, URINE NEGATIVE (NEGATIVE); *CLARITY,URINE TURBID (CLEAR); *COLOR,URINE YELLOW (YELLOW); *KETONES,URINE TRACE (NEGATIVE); *PROTEIN,URINE TRACE (NEGATIVE); LEUKOCYTE ESTERASE ,URINE NEGATIVE (NEGATIVE); NITRITE, URINE NEGATIVE (NEGATIVE); UGLUCOSE NEGATIVE (NEGATIVE)
[2017-03-05 11:20] LABS: BACTERIA,URINE NONE SEEN /HPF (NONE SEEN); CALCIUM OXALATE CRYSTALS,UR MANY /HPF (NONE SEEN); RBC,URINE NONE SEEN /HPF (0-3); SQUAMOUS EPITHELIAL CELL,UR MANY /HPF (NONE SEEN)
[2017-03-05 12:00] VITALS: BP 104/72
[2017-03-05 13:25] LABS: *AMPHETAMINE, URINE NEGATIVE (NEGATIVE); *BARBITURATE, URINE NEGATIVE (NEGATIVE); *CANNABINOID, URINE NEGATIVE (NEGATIVE); *COCCAINE, URINE NEGATIVE (NEGATIVE); *OPIATE, URINE NEGATIVE (NEGATIVE); *PHENCYCLIDINE SCREEN,URINE NEGATIVE (NEGATIVE)
[2017-03-05] MEDS ORDERED: ALBUTEROL SULFATE 8 GM HFA.AER.AD IH PRN ×2 (13:30→14:15)
[2017-03-05] MEDS ORDERED: METOPROLOL TARTRATE 100 MG TABLET PO ONE (13:30)
[2017-03-05] MEDS ORDERED: PHENAZOPYRIDINE HCL 100 MG TABLET PO PRN (13:30)
[2017-03-05] MEDS ORDERED: ALBUTEROL SULFATE 2.5 MG/ 0.5 ML NEBU NEB PRN (13:45)
[2017-03-05] MEDS ORDERED: METOPROLOL TARTRATE 50 MG TABLET PO ONE (14:00)
[2017-03-05] MEDS ORDERED: ALBUTEROL SULFATE 2.5 MG/3 ML NEBU NEB PRN (14:30)
[2017-03-05] MEDS ORDERED: PATIENT MAY USE OWN MED- MD OK INH SCH (15:00)
[2017-03-05 16:00] VITALS: BP 112/72
[2017-03-05] MEDS ORDERED: AZIT250T6 PO (17:41)
[2017-03-05] MEDS ORDERED: Metoprolol Tartrate PO (17:41)
[2017-03-05] MEDS ORDERED: LORA-114 PO (17:41)
[2017-03-05] MEDS ORDERED: TRAZ-144 PO (17:41)
[2017-03-05] MEDS ORDERED: Nicotine TD (17:41)
[2017-03-05] MEDS ORDERED: PRAZ1CAP2 PO (17:41)
[2017-03-05] MEDS ORDERED: CHOL10002 PO (17:41)
[2017-03-05] MEDS ORDERED: Gabapentin PO (17:41)
[2017-03-05] MEDS ORDERED: HYDR-3895 PO (17:41)
[2017-03-05] MEDS ORDERED: AMLO10TA2 PO (17:41)
--- NOTE | 2017-03-05 19:12 | NUR ---
END OF SHIFT: PT COMPLETED VALIUM/SUBUTEX TAPER. SHE PRESENTS WITH ANXIOUS MOOD AND CONGRUENT AFFECT. EKG DONE AND SHOWS SINUS TACH. NEW ORDER FOR LOPRESSOR PER MD. HER HANDS ARE TREMULOUS. LAST COWS 4 CIWA 6. DISCHARGE PLANNING IN PROGRESS FOR 03/06. WILL ENDORSE UDS COLLECTION TO NIGHT NURSE. UA THIS AM SHOW NO S/S OF INFECTION. MD AWARE. WILL PASS SHIFT REPORT TO ONCOMING NIGHT NURSE.
[2017-03-05 19:23] LABS: *ANTI-SCLERODERMA-70 AB <0.2 AI (0.0-0.9); *RNP ANTIBODIES 1.8 AI (0.0-0.9); *SJOGREN'S ANTI-SS-A <0.2 AI (0.0-0.9); *SJOGREN'S ANTI-SS-B <0.2 AI (0.0-0.9); *SMITH ANTIBODIES <0.2 AI (0.0-0.9); ANTI-DNA(DS) AB, QN 1 IU/mL (0-9); ANTI-NUCLEAR AB DIRECT Positive (Negative)
[2017-03-05] MEDS ORDERED: IPRATROPIUM BROMIDE 0.5 MG/2.5 ML NEBU NEB SCH (19:30)
[2017-03-05 20:00] VITALS: BP 105/82
--- NOTE | 2017-03-05 20:00 | NUR ---
Start of Shift Note: Report received from day shift nurse. Pt is a a 46yo female admitted on 02/27/17 for medically-supervised withdrawal from benzodiazepines and opiates. Pt reports using Xanax 6mg/day for 20 years and Roxicodone 240-270mg/day for 7 months. Pt has completed 5-day Valium and Subutex tapers and is to discharge tomorrow. Pt received with last day shift COWS=4, CIWA 6. Pt reports a hx of withdrawal-induced seizure, last 08/2016. Pt also reports anxiety and depression. Full code, regular diet, NKDA/NKFA. Pt is currently in H&I group. Discharge UDS results print endorsed from day shift. Will continue to monitor.
[2017-03-05] MEDS ORDERED: METOPROLOL TARTRATE 50 MG TABLET PO SCH ×2 (21:00)
[2017-03-05] MEDS: METOPROLOL TARTRATE 100 MG TABLET PO SCH (21:16)
[2017-03-05] MEDS: TRAZODONE 50 MG TABLET PO PRN (21:16)
--- NOTE | 2017-03-05 21:17 | NUR ---
PRN Clonidine, PRN Trazodone, PRN Pyridium Pt c/o increased anxiety. Administered PRN Clonidine as ordered. Pt c/o inability to sleep. Administered PRN Trazodone as ordered. Pt c/o dysuria. Administered PRN Pyridium as ordered. Will continue to monitor.
[2017-03-05] MEDS: PRAZOSIN HCL 1 MG CAPSULE PO SCH (21:18)
--- NOTE | 2017-03-05 22:20 | NUR ---
Reassessment: Pt is in bed with eyes closed. Respirations are even and unlabored. No s/s of acute distress noted. PRN medications Clonidine, Trazodone, and Pyridium effective AEB pt's ability to rest. Will continue to monitor.
--- NOTE | 2017-03-06 | NUR ---
Vitals Refused: Pt refuses 00:00 vitals assessment. Pt states that she wants to sleep. Pt educated on risks/benefits but still refuses. COWS and CIWA deferred. Will continue to monitor. Addendum: 03/06/17 at 0146 by SHANICE GARCIA RN Amended: Links added.
[2017-03-06 04:00] VITALS: BP 101/79
--- NOTE | 2017-03-06 07:15 | NUR ---
End of Shift Note: Pt is a a 46yo female admitted to [facility] on 02/27/17 for medically-supervised withdrawal from benzodiazepines and opiates. Pt reports using Xanax 6mg/day for 20 years and Roxycodone 240-270mg/day for 7 months. Pt has completed 5-day Valium and Subutex tapers and is to discharge today. Scheduled medication regime managed mild s/s of withdrawal, in addition to PRN Clonidine for anxiety. PRN Trazodone was given for insomnia and PRN Pyridium for dysuria. V/S stable thoughout shift, with HR slightly elevated at 92 and 91. Last COWS=3, CIWA=3 at 04:00. Total fluid intake this shift: 1474 mL; output: urine x 4, stool x 1. Pt is currently in bed and slept 7 hours this shift. Bed is in low position and locked, side rails up x2, call light within reach. All needs attended and met. Will continue to monitor.
--- NOTE | 2017-03-06 07:30 | NUR ---
START OF SHIFT Received report from night cleaner nurse. 46 year old female patient admitted on 02/27/17 for Opiate and Benzo dependence. Pt has completed ordered 5 day Subutex and 5 day Valium taper. Pt does not present with acute s/s of withdrawals at this time. V/S remain WNL. PRN Clonidine, Trazodone and Pyridium was administered and effective. Pt slept for 7 hours. Most recent COWS 3 and CIWA 3. Pt did not ask for breathing treatment and no SOB noted. RR even and unlabored. Pt refuses Nicotine patch and chooses to continue to smoke, education provided. All needs met at this time, safety precautions are in place, will continue to monitor.
[2017-03-06 08:12] VITALS: BP 121/84
[2017-03-06] MEDS: METOPROLOL TARTRATE 100 MG TABLET PO SCH (08:40)
[2017-03-06] MEDS: HYDROXYZINE PAMOATE 25 MG CAPSULE PO PRN (08:40)
[2017-03-06] MEDS: AZITHROMYCIN 250 MG TABLET PO SCH (08:40)
--- NOTE | 2017-03-06 08:40 | NUR ---
PRN VISTARIL Pt complains of anxiety related to discharge. Calming reassurance provided. PRN Vistaril administered as ordered. Will reassess.
[2017-03-06 08:41] VITALS: BP 121/84
[2017-03-06] MEDS: MULTIVITAMINS,THERAPEUTIC TABLET PO SCH (08:41)
[2017-03-06] MEDS: LORATADINE 10 MG TABLET PO SCH (08:41)
[2017-03-06] MEDS: AMLODIPINE 10 MG TABLET PO SCH (08:41)
[2017-03-06] MEDS: GABAPENTIN 300 MG CAPSULE PO SCH (08:41)
[2017-03-06] MEDS: NICOTINE 14 MG/24HR PATCH TD SCH (08:44)
[2017-03-06] MEDS: FLUTICASONE PROP NASAL SPRAY 16 GM BOTTLE NS SCH (08:44)
[2017-03-06] MEDS ORDERED: CHOLECALCIFEROL 1,000 UNIT TABLET PO SCH (09:00)
--- NOTE | 2017-03-06 09:40 | NUR ---
REASSESSMENT Pt reports Vistaril was effective and anxiety is decreased and tolerable.
--- NOTE | 2017-03-06 09:55 | NUR ---
D/C NOTES Pt is A/O x4. V/S remain WNL. Pt denies SI/HI or hallucinations. Pt shows no s/s of acute withdrawal at this time, and is stable. MD has medically cleared pt for d/c . Education on Hepatitis C, smoking cessation and medication side effects provided. Pt verbalizes understanding. All pt belongings are in belonging bag, including prescription and home medications. Most recent COWS 2 and CIWA 2. Pt ambulates with steady gait. Pt is being accompanied by DEPARTMENT DIRECTOR at this time to be transported to rehab. All needs met.
== END 2017-03-06 09:55 | disposition other institution (70) | DRG 895 ==
LOC: SRC 17:50
PROVIDERS: ADMIT Internal Medicine; ATTEND Internal Medicine
PROC: HZ2ZZZZ Detoxification Services for Substance Abuse Treatment (ICD-10-PCS; principal; 2017-02-27)
PROC: HZ31ZZZ Individual Counseling for Substance Abuse Treatment, Behavioral (ICD-10-PCS; 2017-02-28)
PROC: HZ41ZZZ Group Counseling for Substance Abuse Treatment, Behavioral (ICD-10-PCS; 2017-03-01)
DX: F11.23 Opioid dependence with withdrawal (principal); J45.21 Mild intermittent asthma with (acute) exacerbation; J20.9 Acute bronchitis, unspecified; Z81.1 Family history of alcohol abuse and dependence; Z82.49 Family history of ischemic heart disease and other diseases of the circulatory system; Z81.3 Family history of other psychoactive substance abuse and dependence; F13.230 Sedative, hypnotic or anxiolytic dependence with withdrawal, uncomplicated; F41.9 Anxiety disorder, unspecified; I10 Essential (primary) hypertension; D72.823 Leukemoid reaction; E87.6 Hypokalemia; E55.9 Vitamin D deficiency, unspecified; F17.210 Nicotine dependence, cigarettes, uncomplicated; F51.4 Sleep terrors [night terrors]; G47.00 Insomnia, unspecified; R73.9 Hyperglycemia, unspecified; R30.0 Dysuria; F32.9 Major depressive disorder, single episode, unspecified; M79.2 Neuralgia and neuritis, unspecified; G89.29 Other chronic pain; E83.39 Other disorders of phosphorus metabolism
CPT/HCPCS: 36415; 70030-TC; 71010; 80307; 82306; 82746; 83735; 84100; 84443; 84703; 85025; 85651; 86038; 86592; 86705; 86803; 87086; 87340; 87806; 93005; 94640; 94664; A4663; G6040-TC; J3535; J3590; Q0144; Q0162; Q0163